=== PATIENT | male | born 1970 | race Two or more races ===

== ENCOUNTER 2024-08-04 22:52 | Emergency (ER) | payer MEDICAID ==
[~2024-08-04] VITALS: Ht 180.3 cm; Wt 81.7 kg
[2024-08-04 23:10] VITALS: O2SAT 94
[2024-08-05 00:10] LABS: BASOPHILS % 0.8 % (0.0-2.0); EOSINOPHILS % 5.6 % (0.0-5.0); HEMATOCRIT. 40.4 % (42.0-52.0); HEMOGLOBIN. 13.6 g/dL (14.0-18.0); LYMPHOCYTES % 22.1 % (20.0-50.0); MEAN CORPUSCULAR HGB CONC 33.6 g/dL (31.0-37.0); MEAN CORPUSCULAR VOLUME 95.5 fL (80.0-94.0); MEAN PLATELET VOLUME 7.5 fl (7.4-10.4); NEUTROPHILS % 62.5 % (40.0-76.0); PLATELET 276 x1000/uL (130-400); RED BLOOD CELL COUNT 4.23 mill/uL (4.7-6.1); RED CELL DISTRIBUTION WIDTH 15.1 % (11.6-14.6); WHITE BLOOD COUNT 9.4 x1000/uL (4.5-11.0)
[2024-08-05 00:15] LABS: CHLORIDE 102 mEq/L (98-107); POTASSIUM 3.9 mEq/L (3.5-5.1); SODIUM 136 mEq/L (136-145)
[2024-08-05 00:16] LABS: CARBON DIOXIDE 26 mEq/L (21-32)
[2024-08-05] MEDS: LORAZEPAM 1MG TABLET PO ONE (00:16)
[2024-08-05] MEDS: TETANUS, DIPHTHERIA, PERTUSSIS VAC/PF 0.5ML (>10YR OLD) IM ONE (00:16)
[2024-08-05] MEDS: LIDOCAINE HCL/PF 1% 10 MG/ML 5ML VIAL INFIL ONE (00:17)
[2024-08-05] MEDS: BACITRACIN ZINC OINT UDPKT TOP ONE (00:18)
[2024-08-05 00:21] LABS: GLUCOSE 128 mg/dL (70-105); UREA NITROGEN BLOOD 23 mg/dL (9-23)
[2024-08-05] MEDS ORDERED: SULF1TAB48 MT (00:31)
[2024-08-05 00:41] VITALS: BP 138/67; PULSE 110; RESP 20; TEMP 36.55848; O2SAT 94
== END 2024-08-05 00:42 | disposition home or self-care (01) ==
LOC: ER 22:52
DX: L02.414 Cutaneous abscess of left upper limb (principal); Z90.49 Acquired absence of other specified parts of digestive tract
CPT/HCPCS: 80048; 85025; 36415; 10060; 90471; 99283; 90715; J3490; Z7610 ×2